=== PATIENT | female | born 1990 | race Caucasian/White ===

== ENCOUNTER 2018-09-13 17:16 | Emergency (ER) | payer SELFPAY ==
--- NOTE | 2018-09-13 17:57 | EDPHY ---
H & P Stated Complaint: RLQ abdominal pain x 1 day Time Seen by Provider: 09/13/18 17:36 HPI/ROS: CHIEF COMPLAINT: Right lower quadrant pain History by patient HISTORY OF PRESENT ILLNESS: 28-year-old woman with a history of ovarian cysts and dermoid cyst removal in the past presents complaining of acute onset of right lower quadrant pain which she describes as "feeling like my ovary is going to explode". She said she is having intermittent mild symptoms last night but this morning the pain has been persistent and gradually worsening. Side associated with any nausea or vomiting. Pain does not radiate into her back. There is no associated hematuria, dysuria urgency or frequency. She has no prior history of kidney stones. She denies any fever. She just started her menses. She was having some vaginal discharge just before this started. She has an IUD in place. She denies . She was tested for STDs 1 month ago and the tests were negative. REVIEW OF SYSTEMS: As in HPI, and all other systems reviewed and are negative Source: Patient - Personal History LMP (Females 10-55): Now Current Tetanus Diphtheria and Acellular Pertussis (TDAP): Yes Tetanus Vaccine Date: [id number] years - Medical/Surgical History Hx Asthma: No Hx Chronic Respiratory Disease: No Hx Diabetes: No Hx Cardiac Disease: No Hx Renal Disease: No Hx Cirrhosis: No Hx Alcoholism: No Hx HIV/AIDS: No Hx Splenectomy or Spleen Trauma: No Other PMH: Ovarian cysts, R foot surgery, depression - Social History Smoking Status: Current every day smoker - Physical Exam Exam: General Appearance: Alert, nontoxic-appearing. Eyes: Pupils equal and round, extraocular movements intact, no pallor or injection. Mouth: Mucous membranes moist. Pharynx clear Respiratory: Normal, effort, lungs are clear to auscultation. No wheezes, rales or rhonchi. Cardiovascular: Regular rate and rhythm. S1, S2, no murmurs, gallops or rubs appreciated Gastrointestinal: bowel sounds present, Abdomen is soft and nondistended nontender, no masses : Normal external genitalia, scant white discharge, IUD string in place, no cervical motion tenderness, mild right adnexal tenderness, no masses Back: No CVA tenderness, no bony tenderness Neurological: Awake, alert and oriented x 3, no pronator drift, normal gait, no pronator drift Skin: Warm and dry, no rashes. Musculoskeletal: No deformities or tenderness. Extremities: full range of motion, no edema Psychiatric: Patient has normal affect, there is no agitation. Constitutional: Initial Vital Signs Temperature (C) 36.8 C 09/13/18 17:22 Heart Rate 83 09/13/18 17:22 Respiratory Rate 16 09/13/18 17:22 Blood Pressure 123/82 H 09/13/18 17:22 O2 Sat (%) 98 09/13/18 17:22 O2 Delivery Mode Room Air Allergies/Adverse Reactions: No Known Allergies Allergy (Verified 09/13/18 17:24) Home Medications: Medication Instructions Recorded Hydrocodone/APAP 5/325 [Hendricks 1 - 2 tab PO Q4H PRN #10 tab 09/13/18 5/325 (*)] Zoloft 100mg (*) 09/13/18 Medical Decision Making - Diagnostics Imaging Results: Imaging Impressions Pelvic/Renal Ultrasound 09/13/18 18:06 Impression: 1. Large complex right ovarian cyst presumably accounts for the patient's symptomatology. 2. Complex/solid left ovarian nodule. 3. Follow-up evaluation in 12 weeks or as clinically directed for assessment of ovarian abnormalities. 4. See above report for additional findings. Results called and discussed with Jodi Turner MD on September 13, 2018 at 2005 hours. ED Course/Re-evaluation: 28-year-old woman with history of prior ovarian cyst presents with severe right lower quadrant pain. Abdominal exam is unremarkable and I doubt had appendicitis given lack of GI symptoms. I was concerned about ovarian torsion given her history and presentation.. Patient was given IV ketorolac with minimal relief. She was then given fentanyl with improvement in her pain. Ultrasound was obtained which showed a large complex right ovarian cyst possible bleeding inside the cyst and likely the cause of her symptoms. Per the radiologist there was good flow and no evidence of torsion. Patient did require 2nd dose of fat lip was feeling better on re-evaluation. She is followed by [facility] and states she can see them for follow-up for this complex cyst. - Data Points Laboratory Results: 09/13/18 09/13/18 09/13/18 18:05 18:05 17:40 POC Sodium 143 mEq/L mEq/L (135-145) POC Potassium 3.2 mEq/L L mEq/L (3.3-5.0) POC Chloride 104.0 mEq/L mEq/L (97-110) POC Total CO2 24 mEq/L mEq/L (22-31) POC BUN 10 mg/dL mg/dL (7-23) POC Creatinine 0.8 mg/dL mg/dL (0.6-1.0) POC Glucose 95 mg/dL mg/dL (70-100) POC Calcium 9.5 mg/dL mg/dL (8.5-10.4) Chasidy species DNA Pending C.trachomatis RNA (TMA) Pending Gardnerella DNA Probe Pending N.gonorrhoeae RNA (TMA) Pending Trichomonas DNA Probe Pending Medications Given: Discontinued Medications Hydrocodone Bitart/Acetaminophen (Hendricks 5/325mg Prepack#6) 1 btl TAKEHOME EDNOW ONE Stop: 09/13/18 20:18 Last Admin: 09/13/18 20:30 Dose: 1 btl Fentanyl (Sublimaze) 50 mcg IVP EDNOW ONE Stop: 09/13/18 18:39 Last Admin: 09/13/18 18:41 Dose: 50 mcg Fentanyl (Sublimaze) 50 mcg IVP EDNOW ONE Stop: 09/13/18 20:04 Last Admin: 09/13/18 20:05 Dose: 50 mcg Ketorolac Tromethamine (Toradol) 15 mg IVP EDNOW ONE Stop: 09/13/18 18:10 Last Admin: 09/13/18 18:18 Dose: 15 mg Point of Care Test Results: CBC CBC Collection Date 09/13/18 CBC Collection Time 17:34 WBC 7.0 RBC 4.78 HGB 14.6 HCT 41.5 PLT 185 Neut # 4.7 Neut 66.8 LYMPH # 1.7 LYMPH 24.9 Other WBC # 0.6 Other WBC 8.3 MCV 86.8 Chemistry 09/13/18 17:40 POC Sodium 143 mEq/L mEq/L (135-145) POC Potassium 3.2 mEq/L L mEq/L (3.3-5.0) POC Chloride 104.0 mEq/L mEq/L (97-110) POC Total CO2 24 mEq/L mEq/L (22-31) POC BUN 10 mg/dL mg/dL (7-23) POC Creatinine 0.8 mg/dL mg/dL (0.6-1.0) POC Glucose 95 mg/dL mg/dL (70-100) POC Calcium 9.5 mg/dL mg/dL (8.5-10.4) Basic Metabolic Panel BMP Collection Date 09/13/18 BMP Collection Time 17:34 Urine Collection Date 09/13/18 Collection Time 17:28 HCG Results Negative Urine Dip Collection Date 09/13/18 Collection Time 17:28 Specific [place] (1.002-1.030) 1.020 PH (5.0-7.5) 6.0 Leukocytes (Negative) Trace Nitrites (Negative) Negative Protein (Negative) Negative Glucose (Negative) Negative Ketones (Negative) Negative Urobilnogen (0.2-1.0 EU) 0.2 Bilirubin (Negative) Negative Blood (Negative) 2+ Departure - Departure Disposition: Home, Routine, Self-Care Clinical Impression: Complex cyst of right ovary Condition: Good Instructions: Hydrocodone/Acetaminophen (By mouth), Ovarian Cyst (ED) Additional Instructions: You were seen by Dr. Jodi Turner today. You have a large, complex ovarian cyst. Please have this rechecked by your septic technician at [facility]. Call on Saturday to make a follow-up appointment. Take ibuprofen 600 mg 4 times a day for pain. You may add Hendricks for severe pain. Return for any worsening or new concerns, including but not limited to sudden worsening or severe pain Referrals: NONE *PRIMARY CARE P,. [Primary Care Provider] - As per Instructions Prescriptions: Hydrocodone/APAP 5/325 [Hendricks 5/325 (*)] 1 - 2 tab PO Q4H PRN #10 tab PRN Reason: Pain, Moderate
[2018-09-13] MEDS ORDERED: KETOROLAC 15 MG/1 ML SDV IVP ONE (18:09)
[2018-09-13] MEDS ORDERED: fentaNYL 100 MCG/2 ML INJ IVP ONE ×2 (18:38→20:03)
[2018-09-13] MEDS ORDERED: HYDROCOD/APAP 5/325 PREPACK#6 BTL TAKEHOME ONE (20:17)
[2018-09-13 20:37] VITALS: BP 120/65
[2018-09-15 11:45] LABS: GC AMPLIFICATION GENPROBE NEGATIVE (NEGATIVE)
== END 2018-09-13 20:37 | disposition home or self-care (01) ==
LOC: CED 17:16
DX: N83.201 Unspecified ovarian cyst, right side (principal)
CPT/HCPCS: 76856-PO; 80048-PO; 96374; J1885; J3010

== ENCOUNTER 2018-09-21 17:00 | Emergency (ER) | payer OTHER ==
[2018-09-21] MEDS ORDERED: NS 1,000 ML IV ONE (17:14)
[2018-09-21] MEDS ORDERED: KETOROLAC 30 MG/1 ML SDV IVP ONE (17:43)
--- NOTE | 2018-09-21 17:48 | EDPHY ---
H & P Time Seen by Provider: 09/21/18 17:11 HPI/ROS: CHIEF COMPLAINT: Right-sided abdominal pain, difficulty urinating HISTORY OF PRESENT ILLNESS: 28-year-old female with a known history of a complex, large right-sided ovarian cyst which was diagnosed 8 days ago in this emergency department presents reporting ongoing pain in the right lower quadrant with a increase in pain tonight associated with nausea. She also reports that every time she tries to urinate she feels like she can't P and A causes an increase in the pain in her right lower quadrant. No fevers or chills. No vomiting. Patient reports that she was tested for STDs during her prior visit and was positive for bacterial vaginosis for which she is currently taking Flagyl. She has an IUD in place. She use [place] initially for her pain but has no further tablets. She states she did go to see her air pollution auditor who "did nothing". She has taken ibuprofen intermittently with little relief. No fever, chills, chest pain, shortness of breath, palpitations, vomiting, diarrhea, headache, lightheadedness. REVIEW OF SYSTEMS: A comprehensive 10 system review of systems was reviewed and is otherwise negative aside from elements mentioned in the history of present illness and medical decision making. PAST MEDICAL HISTORY: Ovarian cyst. Dermoid tumor removed. AB 0. IUD in place. SOCIAL HISTORY: Occasional alcohol, smoker. No marijuana use. VITAL SIGNS Reviewed by me. GENERAL: Well-developed, well-nourished, resting comfortably in no respiratory distress. HEENT: Atraumatic. Eyes: No icterus, no injection. Mouth: moist mucous membranes. No erythema or lesions. Neck: supple with no adenopathy. LUNGS: Clear to auscultation bilaterally, no wheezes, rhonchi or rales. CARDIAC: Regular rate and rhythm, no rubs, murmurs or gallops. ABDOMEN: Soft, mild tenderness in the right adnexal region. No guarding or rebound. Normal bowel sounds. No distension. BACK: Mild right CVA tenderness. EXTREMITIES: No trauma. No edema. Range of motion is normal throughout. NEURO: Alert and oriented, grossly nonfocal. SKIN: Warm and dry, no rash. PSYCHIATRIC: Normal mentation, no agitation. Smoking Status: Current every day smoker Constitutional: Initial Vital Signs Temperature (C) 37 C 09/21/18 17:06 Heart Rate 79 09/21/18 17:06 Respiratory Rate 16 09/21/18 17:06 Blood Pressure 121/80 H 09/21/18 17:06 O2 Sat (%) 100 09/21/18 17:06 O2 Delivery Mode Room Air Allergies/Adverse Reactions: No Known Allergies Allergy (Verified 09/21/18 17:09) Home Medications: Medication Instructions Recorded Cephalexin [Keflex (RX)] 500 mg PO TID 7 Days cap 09/21/18 Flagyl 09/21/18 Indomethacin 50 mg PO Q8 PRN #15 capsule 09/21/18 Medical Decision Making ED Course/Re-evaluation: IV placed. Patient received 1 L normal saline. She received 30 mg of Toradol IV. Pelvic ultrasound ordered to evaluate for torsion versus rupture of the complex cyst. The patient's ultrasound demonstrates resolution of the right ovarian cyst. Urinalysis is positive for trace leukocyte esterase. Urine microscopic is not available at this [facility]. Urinalysis, u-arlene and urine cultures were all ordered and sent to [facility]. Patientwas instructed regarding regular uses of nonsteroidals for pain control as well as anti inflammation and anti prostaglandin, follow up with OBGYN, and was given a prescription of Keflex to take if her urine culture was positive for infection. Doubt PID without history of fever and currently on Flagyl for bacterial vaginosis. Patient does have an IUD in place which increases the risk for PID, however, she reports being with 1 partner only. Differential Diagnosis: The differential diagnosis for the patient's abdominal pain was considered including but not limited to ovarian cyst, pelvic inflammatory disease, ovarian torsion, urinary tract infection, related complications, and appendicitis. - Data Points Laboratory Results: 09/21/18 17:59 POC Sodium 143 mEq/L mEq/L (135-145) POC Potassium 3.0 mEq/L L mEq/L (3.3-5.0) POC Chloride 106.0 mEq/L mEq/L (97-110) POC Total CO2 23 mEq/L mEq/L (22-31) POC BUN 17 mg/dL mg/dL (7-23) POC Creatinine 0.5 mg/dL L mg/dL (0.6-1.0) POC Glucose 103 mg/dL H mg/dL (70-100) POC Calcium 9.4 mg/dL mg/dL (8.5-10.4) Medications Given: Discontinued Medications Fentanyl (Sublimaze) 75 mcg IVP EDNOW ONE Stop: 09/21/18 18:08 Last Admin: 09/21/18 18:15 Dose: 75 mcg Hydromorphone HCl (Dilaudid) 1 mg IVP EDNOW ONE Stop: 09/21/18 18:48 Last Admin: 09/21/18 19:04 Dose: 1 mg Sodium Chloride (Ns) 1,000 mls @ 0 mls/hr IV ONCE ONE; Wide Open PRN Reason: Protocol Stop: 09/21/18 17:15 Last Admin: 09/21/18 17:31 Dose: 1,000 mls Ketorolac Tromethamine (Toradol) 30 mg IVP EDNOW ONE Stop: 09/21/18 17:44 Last Admin: 09/21/18 17:47 Dose: 30 mg Point of Care Test Results: CBC CBC Collection Date 09/21/18 CBC Collection Time 17:27 WBC 7.4 RBC 4.76 HGB 14.4 HCT 41.5 PLT 170 Neut # 5.3 Neut 72.4 LYMPH # 1.5 LYMPH 19.8 Other WBC # 0.6 Other WBC 7.8 MCV 87.2 Chemistry 09/21/18 17:59 POC Sodium 143 mEq/L mEq/L (135-145) POC Potassium 3.0 mEq/L L mEq/L (3.3-5.0) POC Chloride 106.0 mEq/L mEq/L (97-110) POC Total CO2 23 mEq/L mEq/L (22-31) POC BUN 17 mg/dL mg/dL (7-23) POC Creatinine 0.5 mg/dL L mg/dL (0.6-1.0) POC Glucose 103 mg/dL H mg/dL (70-100) POC Calcium 9.4 mg/dL mg/dL (8.5-10.4) Urine Collection Date 09/21/18 Collection Time 18:00 HCG Results Negative Urine Dip Collection Date 09/21/18 Collection Time 18:00 Specific [place] (1.002-1.030) 1.025 PH (5.0-7.5) 6.0 Leukocytes (Negative) 1+ Nitrites (Negative) Negative Protein (Negative) Negative Glucose (Negative) Negative Ketones (Negative) Negative Urobilnogen (0.2-1.0 EU) 0.2 Bilirubin (Negative) Negative Blood (Negative) Trace Departure - Departure Disposition: Home, Routine, Self-Care Clinical Impression: Cyst of ovary Qualifiers: Laterality: right Qualified Code(s): N83.201 - Unspecified ovarian cyst, right side Condition: Good Instructions: Ovarian Cyst (ED), Pelvic Pain in Women (ED) Additional Instructions: Mainstay of treatment for ovarian cysts is regular doses of nonsteroidal anti- inflammatory drugs. These will help nausea with the pain, inflammation, but also have a anti prostaglandin affect which will diminish the discomfort. However, the need to be taken on a regular basis in order to be most effective for anti prostate gland ends. You been given a prescription of indomethacin which should be used on a regular basis, taken with food, to help with pain, inflammation, and to provide anti- prostaglandin effects. You have also been given referral to Dr. Horan who is on-call for this emergency department for OBGYN. Please follow up with him, 1 of his partners, or with your regular Construction Quality Control Manager physician. You will be contacted if the the urine appears to be infected. You been given a prescription for Keflex. Please begin taking this if you're contacted regarding the urine studies. Referrals: NONE *PRIMARY CARE P,. [Primary Care Provider] - As per Instructions Santhosh Horan MD [Medical Doctor] - As per Instructions Prescriptions: Cephalexin [Keflex (RX)] 500 mg PO TID 7 Days cap Indomethacin 50 mg PO Q8 PRN #15 capsule PRN Reason: Pain
[2018-09-21] MEDS ORDERED: fentaNYL 100 MCG/2 ML INJ IVP ONE (18:07)
[2018-09-21] MEDS ORDERED: HYDROmorphONE/DILAUDID 2 MG/ML INJ IVP ONE (18:47)
[2018-09-21 20:23] VITALS: BP 122/62
== END 2018-09-21 20:21 | disposition home or self-care (01) ==
LOC: CED 17:00
DX: R10.31 Right lower quadrant pain (principal); N83.201 Unspecified ovarian cyst, right side; E86.9 Volume depletion, unspecified; F17.200 Nicotine dependence, unspecified, uncomplicated
CPT/HCPCS: 76856-PO; 80048-PO; 96374; J1170; J1885; J3010